=== PATIENT | female | born 1995 | race Two or more races ===

== ENCOUNTER 2017-11-05 19:36 | Emergency (ER) | payer SELFPAY ==
[~2017-11-05] VITALS: Ht 167.6 cm; Wt 79.0 kg
[2017-11-05 20:06] VITALS: BP 131/79
[2017-11-05] MEDS ORDERED: LIDOCAINE HCL 1% 20ML VIAL (Pyxis) INJ INFIL ONE (23:30)
[2017-11-06] MEDS ORDERED: HYDROCODONE/ACETAMINOPHEN 5/325MG TABLET PO ONE (00:30)
== END 2017-11-06 00:57 | disposition home or self-care (01) ==
LOC: ER 20:21
DX: L05.91 Pilonidal cyst without abscess (principal)
CPT/HCPCS: 10080; 87070; 87205; 99284; J3490; Z7610

== ENCOUNTER 2017-11-08 14:30 | Emergency (ER) | payer SELFPAY ==
[~2017-11-08] VITALS: Ht 167.6 cm; Wt 80.0 kg
[2017-11-08 15:58] VITALS: BP 131/73
[2017-11-08] MEDS ORDERED: BACITRACIN ZINC OINT UDPKT TOP ONE (19:00)
== END 2017-11-08 19:30 | disposition home or self-care (01) ==
LOC: ER 15:09
DX: Z48.00 Encounter for change or removal of nonsurgical wound dressing (principal)
CPT/HCPCS: 81025; 99283; X7700; Z7610

== ENCOUNTER 2017-11-11 09:56 | Emergency (ER) | payer MEDICAID ==
[~2017-11-11] VITALS: Ht 167.6 cm; Wt 79.0 kg
[2017-11-11 11:09] VITALS: BP 128/75
== END 2017-11-11 14:53 | disposition home or self-care (01) ==
LOC: ER 11:38
DX: Z48.01 Encounter for change or removal of surgical wound dressing (principal)
CPT/HCPCS: 99281